=== PATIENT | female | born 1945 | race Caucasian/White ===

== ENCOUNTER 2018-12-10 09:48 | Day surgery (SDC) | payer MEDICARE ==
[2018-12-09 13:03] VITALS: BMI 27.3
[2018-12-10] MEDS ORDERED: PROPOFOL 200 MG/20 ML VIAL ONE (16:24)
--- NOTE | 2018-12-10 17:37 | OP ---
DATE OF PROCEDURE: 12/10/2018 TITLE OF PROCEDURE: Esophagogastroduodenoscopy with biopsy. PREPROCEDURE DIAGNOSES: 1. Reflux. 2. Odynophagia. POSTPROCEDURE DIAGNOSES: 1. Exam to second portion of duodenum. 2. A 3 to 4 cm hiatal hernia extending from 38 to 42 cm from the incisor teeth, biopsied. 3. No esophageal or peptic ulcers identified. 4. No esophageal stenosis or stricture identified. 5. Mild nonspecific gastric erythema of the body and antrum, biopsied. 6. Normal duodenum. DESCRIPTION OF PROCEDURE: Written informed consent was obtained. The patient was brought to the endoscopy suite. Total intravenous anesthesia was administered by Dr. Mayito Vazquez. The patient was placed in the left lateral decubitus position. A bite block was inserted into the mouth. The Pentax video diagnostic gastroscope was introduced into the oral cavity and the esophagus was carefully intubated. The gastroscope was advanced under direct visualization to the second portion of the duodenum. Endoscopic findings revealed a 3 to 4 cm hiatal hernia extending from 38 to 42 cm from the incisor teeth. The hiatal hernia was visible both forward viewing and on retroflexion in the stomach. The esophageal mucosa proximal to the hiatal hernia appeared intact without evidence of chronic erosions, columnar epithelium, ulcer, or stricture. Biopsies were obtained in the distal esophagus just proximal to the hiatal hernia. The stomach was then entered and carefully examined. This included a retroflex view of the cardia and fundus, which demonstrated the hiatal hernia. Mild nonspecific erythema in a patchy distribution was noted in the distal body and antrum. Biopsies were obtained for CLOtest. The duodenum from the bulb to the second portion was then inspected and appeared grossly normal. There was no evidence of peptic ulcer. The stomach was decompressed as the endoscope was removed from the patient. She was transferred to the Day Stay surgery area for postprocedure monitoring. There were no immediate complications. RECOMMENDATIONS: 1. Await biopsy results. 2. Resume previous medications. 3. Increase Nexium from 20 mg daily to 20 mg b.i.d. for the next four weeks. 4. Antireflux lifestyle. 5. Resume diet, but would emphasize the importance of eating low-fat and minimizing the use of caffeine. 6. Follow up in six weeks in [facility]. 7. Call for pathology results in one week. Job ID: [id number]
== END 2018-12-10 13:53 | disposition home or self-care (01) ==
LOC: SDC 09:48
PROVIDERS: ATTEND Internal Medicine Gastroenterology
PROC: 0DB78ZX Excision of Stomach, Pylorus, Via Natural or Artificial Opening Endoscopic, Diagnostic (ICD-10-PCS; principal; 2018-12-10)
PROC: 0DB38ZX Excision of Lower Esophagus, Via Natural or Artificial Opening Endoscopic, Diagnostic (ICD-10-PCS; 2018-12-10)
DX: K21.0 Gastro-esophageal reflux disease with esophagitis (principal); K29.50 Unspecified chronic gastritis without bleeding; K44.9 Diaphragmatic hernia without obstruction or gangrene; I10 Essential (primary) hypertension; Z85.3 Personal history of malignant neoplasm of breast; Z86.010 Personal history of colon polyps; Z87.891 Personal history of nicotine dependence; Z88.2 Allergy status to sulfonamides; Z91.048 Other nonmedicinal substance allergy status; Z79.899 Other long term (current) drug therapy
CPT/HCPCS: 88305; 88312; 88313